=== PATIENT | female | born 1950 | race Caucasian/White ===

== ENCOUNTER 2017-06-23 08:39 | Emergency (ER) | payer MEDICARE, BC ==
[2017-06-23] MEDS ORDERED: Sodium Chloride 0.9% 5 ML Syringe FLUSH PRN (08:58)
[2017-06-23 09:06] VITALS: BP 120/52
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
[2017-06-23 10:18] LABS: CHLORIDE,CL 94 mmol/L (98-115); SODIUM,NA 133 mmol/L (136-145)
[2017-06-23] MEDS ORDERED: Aspirin 81 MG Tab.Chew PO ONE (10:29)
[2017-06-23] MEDS ORDERED: Nitroglycerin 2% Oint 1 GM UD Packet TOP ONE (10:29)
== END 2017-06-23 11:55 ==
LOC: KA.ED 08:39
DX: I50.9 Heart failure, unspecified (principal); J18.9 Pneumonia, unspecified organism; R09.02 Hypoxemia; R79.89 Other specified abnormal findings of blood chemistry; Z88.8 Allergy status to other drugs, medicaments and biological substances; Z79.899 Other long term (current) drug therapy; Z79.84 Long term (current) use of oral hypoglycemic drugs; Z79.82 Long term (current) use of aspirin
CPT/HCPCS: 36415; 71010; 80053; 81001; 82550; 82553; 83605; 83880; 84484; 85025; 85610; 85730; 87040; 93005; 99285; A9270

== ENCOUNTER 2017-10-19 12:35 | Emergency (ER) | payer MEDICARE, BC ==
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
[2017-10-19] MEDS ORDERED: Sodium Chloride 0.9% 1,000 ML IV ONE (13:13)
[2017-10-19 14:41] VITALS: BP 102/78
[2017-10-19] MEDS ORDERED: Sodium Chloride 0.9% 1,000 ML IV SCH (15:45)
== END 2017-10-19 16:00 ==
LOC: KA.ED 12:35
DX: I24.9 Acute ischemic heart disease, unspecified (principal); R79.89 Other specified abnormal findings of blood chemistry; N39.0 Urinary tract infection, site not specified; E11.42 Type 2 diabetes mellitus with diabetic polyneuropathy; I50.9 Heart failure, unspecified; Z88.8 Allergy status to other drugs, medicaments and biological substances; G83.9 Paralytic syndrome, unspecified; Z79.899 Other long term (current) drug therapy; Z79.84 Long term (current) use of oral hypoglycemic drugs
CPT/HCPCS: 36415; 71045; 80048; 81001; 83605; 83880; 84484; 85025; 87040; 87086; 93005; 96360; 99285; J7030